=== PATIENT | female | born 1950 | race Caucasian/White ===

== ENCOUNTER → 2017-04-11 | Outpatient (CLI) | payer MEDICARE ==
--- NOTE | 2017-04-11 14:35 | MM ---
Reason for exam: additional evaluation requested from abnormal screening. Last mammogram was performed 1 month ago. History: Patient is postmenopausal. Physical Findings: Nurse did not find any significant physical abnormalities on exam. MG 3D Work Up W/Cad LT Spot compression CC, spot compression MLO, and ML view(s) were taken of the left breast. Prior study comparison: March 25, 2017, bilateral MG 3d screening mammo w/cad. June 27, 2014, bilateral MG screening mammo w CAD. No distinct lesion persists. These results were verbally communicated with the patient and result sheet given to the patient on 04/11/17. ASSESSMENT: Negative, BI-RAD 1 RECOMMENDATION: Return to routine screening mammogram schedule for both breasts.
== END | disposition home or self-care (01) ==
LOC: RADMAMWWP 13:37
PROVIDERS: ATTEND Family Medicine
DX: R92.8 Other abnormal and inconclusive findings on diagnostic imaging of breast (principal)
CPT/HCPCS: G0206; G0279

== ENCOUNTER → 2017-04-29 | Outpatient (CLI) | payer MEDICARE | END | disposition home or self-care (01) | LOC: LABPAT 10:27 | PROVIDERS: ATTEND Orthopaedic Surgery | DX: Z01.812 Encounter for preprocedural laboratory examination (principal) | CPT/HCPCS: 87070 ==

== ENCOUNTER 2017-05-05 10:25 | Inpatient (IN) | payer MEDICARE ==
[2017-04-28 10:30] VITALS: BMI 32.4
--- NOTE | 2017-05-04 13:26 | HP ---
HISTORY AND PHYSICAL Surgery is 05/05/2017. Keli Retana is a 66-year-old patient seen with symptomatic left knee osteoarthritis. We discussed treatment options. She elected to proceed with left total knee arthroplasty. Consent regarding procedure obtained. Medical clearance was provided by [facility]. PAST MEDICAL HISTORY: Hyperlipidemia, rrr-mnmnxlp-feshshrun diabetes, COPD. PAST SURGICAL HISTORY: Appendectomy, hysterectomy, left knee arthroscopy, lap band surgery. DAILY MEDICATIONS: Atorvastatin, metformin, Breo inhaler. ALLERGIES: None reported. SOCIAL HISTORY: Patient denies tobacco use. PHYSICAL EXAMINATION: Evaluation of the left knee: Range of motion is -7 to 80 degrees. Tenderness along the medial and lateral joint lines. Mild intra-articular effusion. Crepitus medial patellofemoral joints with range of motion. Pain with patellofemoral compression. Ligaments are stable. Hip rotation is without pain. Distal neurovascular exam intact. RADIOGRAPHS: Left knee radiographs reveal severe medial and moderate patellofemoral compartment osteoarthritis. IMPRESSION: 1. Left knee osteoarthritis. 2. Noe-gnuyztl-amlzvderi diabetes. 3. Hypertension. 4. Chronic obstructive pulmonary disease. PLAN: Left total knee arthroplasty. MMODL / IJN: [id number] /
[~2017-05-05 10:25] MED LIST: ACETAMINOPHEN TAB 500 MG TAB PO ONE; DEXAMETHASONE SOD PHOSPHATE 10 MG/ML 1 ML VIAL IV ONE; LACTATED RINGERS 1,000 ML IV SCH; MELOXICAM 7.5 MG TAB PO ONE; MIDAZOLAM 2 MG/2 ML VIAL IV PRN; MORPHINE SULFATE 4 MG/ML SYRINGE IV PRN; ONDANSETRON 4 MG/2 ML VIAL IVP ONE; TRANEXAMIC ACID 1,000 MG in SODIUM CHLORIDE 0.9% 50 ML IVPB ONE; ceFAZolin IN SWFI 2 GM/20 ML SYRINGE IVP ONE
[2017-05-05] MEDS ORDERED: LIDOCAINE 1% 20 ML VIAL (10MG/ML) FOR IV START INTRADERMA ONE (12:17)
[2017-05-05 12:35] LABS: Glucose,Whole Blood 80 mg/dL (75-99)
[2017-05-05] MEDS ORDERED: ROPIVACAINE 246.25 MG, EPINEPHrine 0.5 MG, KETOROLAC 30 MG, cloNIDine HCL/PF 80 MCG, WA... MISCELLANE ONE ×5 (12:43)
[2017-05-05] MEDS ORDERED: fentaNYL (PF) 50 MCG/ML 2 ML AMP IV ONE (12:52)
[2017-05-05] MEDS ORDERED: ROPIVACAINE 1,100 MG, SODIUM CHLORIDE 0.9% 330 ML MISCELLANE PRN ×2 (13:14)
--- NOTE | 2017-05-05 13:16 | P.ONQ ---
Anesthesiology Proc Note - PNB - Peripheral Nerve Block Performed Left Adductor Canal Infusion Time Out Performed: Yes Procedure Start Time: 12:55 Indication: Acute Post-Operative Pain, Analgesia Specifically requested for management of pain by DrDel: Patrick Ta Sedation Type: Sedate with meaningful contact maintained Preparation: Sterile Prep Position: Supine Catheter Depth at Skin (cm): 8 Catheter: Indwelling Needle Types: Other (see comment) (Pajunk) Needle Size: 100mm (4") Needle Gauge: 18 Technique: Ultrasound Injectate: 0.5% Ropivacaine (see comment for volume) (20cc) Blood Aspirated: No Pain Paresthesia on Injection Noted: No Resistance on Injection: Normal Events: Uneventful and Well Tolerated
[2017-05-05] MEDS ORDERED: SODIUM CHLORIDE 0.9% 100 ML BAG ONE (13:43)
[2017-05-05] MEDS ORDERED: fentaNYL (PF) 50 MCG/ML 2 ML AMP ONE (13:43)
[2017-05-05] MEDS ORDERED: LIDOCAINE 1% INJ 10MG/ML (20 ML MDV) ONE (13:43)
[2017-05-05] MEDS ORDERED: PROPOFOL 10 MG/ML 20 ML VIAL IV ONE (13:43)
[2017-05-05] MEDS ORDERED: MIDAZOLAM 2 MG/2 ML VIAL ONE (13:43)
[2017-05-05] MEDS ORDERED: TRANEXAMIC ACID 1,000 MG/10 ML VIAL ONE (13:43)
[2017-05-05] MEDS ORDERED: ceFAZolin 1,000 MG in SODIUM CHLORIDE 0.9% 1,000 ML IRRIGATION ONE ×2 (14:15→15:01)
[2017-05-05] MEDS ORDERED: LACTATED RINGERS 1,000 ML IV ONE (15:23)
--- NOTE | 2017-05-05 15:36 | P.OP ---
Date of Procedure: 05/05/17 Preoperative Diagnosis: Left knee osteoarthritis Postoperative Diagnosis: Left knee osteoarthritis Procedure(s) Performed: Left total knee arthroplasty Implants: 1. Quin persona size 8 left cruciate-retaining narrow cemented femur 2. Quin persona size E left cemented tibia 3. Quin persona 12 mm medial congruent polyethylene tibial insert 4. Quin persona 35 mm all polyethylene cemented patella Anesthesia: regional (Adductor canal catheter), local, spinal Surgeon: Patrick Ta Immunology Specialist #1: Sylvester Gregory Estimated Blood Loss (ml): 50 Pathology: other (Bone) Condition: stable Disposition: PACU Indications for Procedure: 66-year-old patient seen with symptomatic left knee osteoarthritis. After treatment options were discussed, she elected to proceed with total knee arthroplasty. Operative Findings: See description of procedure Description of Procedure: Patient was taken to the operative suite after having had an adductor canal catheter placed by the department of anesthesia. Patient underwent a spinal anesthetic by the department of anesthesia. Patient was given preoperative IV intake antibiotics and TXA. A well-padded tourniquet was placed about the left lower extremity. The lower extremity was then prepped and draped in the normal sterile orthopedic fashion. The extremity was elevated, a tourniquet was insufflated to 350. A standard anterior incision was made sharply through skin. Dissection was taken down through the subcutaneous soft tissues down to the extensor mechanism. A medial arthrotomy was performed, patella was everted and knee was flexed. There was advanced osteoarthritis noted. A proximal tibial cutting guide was positioned. Proximal tibial cut was made. A distal intramedullary femoral cutting guide was positioned, distal femoral cut made. We placed the appropriate sizing guide and selected the appropriate size. A distal 4-in-1 femoral cutting block was positioned, distal femoral cuts were made. We now placed a trial femoral component into position, along with an appropriate size tibial tray and insert. We now took the knee through range of motion and had full extension good flexion and good overall soft tissue balance noted. The patella was everted and a flush cut made with patellar quad tendon. We templated the patella, appropriate drill holes were made. An appropriate trial patella was positioned, knee was taken through full range of motion with the patella tracking very nicely. The trial patella was removed. Drill holes were made through the femoral component. All trial components were removed after marking off the appropriate rotation of the tibia. Retractors were now positioned along the proximal tibia. An appropriate keel punch was made with the appropriate size tibial guide. At this point appropriate size implants were chosen and opened. The joint was irrigated copiously with pulse lavage mechanical irrigation. The posterior capsule was infiltrated with local analgesic. We mixed antibiotic methylmethacrylate. Once the methyl methacrylate was ready, the tibial component was cemented into place removing any excess methylmethacrylate. The femoral component was cemented into place removing the removing any excess methylmethacrylate. We then inserted the appropriate size polyethylene tibial insert. We made sure that it was locked into position. We took the knee into full extension, and then back in a flexion making sure we had removed any excess methylmethacrylate. The patellar component was then cemented down and secured with clamp. Excess methylmethacrylate removed. We kept the knee in full extension, patellar clamp in position until methylmethacrylate had hardened. Once it had hardened the patellar clamp was removed. The knee was taken through full range of motion. The patella tracked nicely. There was good soft tissue balancing. The tourniquet was now released. Additional hemostasis was achieved via electrocautery. A second gram of TXA was given. The wound was irrigated with pulse lavage mechanical irrigation. The superficial tissues were infiltrated local analgesic. The extensor mechanism was repaired with Vicryl. We checked the repair with range of motion and it was stable. The subcutaneous soft tissues were repaired with Vicryl in layers. The skin was approximated with pernio/Dermabond. Sterile dressings were applied followed by loose web roll and Golden bandage. The patient was transferred to a bed, and taken to recovery in stable and satisfactory condition. Omar TAPIA assisted with the procedure.
[2017-05-05] MEDS ORDERED: HYDROmorphone 0.5 MG/0.5 ML SYRINGE IVP PRN ×3 (15:37)
[2017-05-05] MEDS ORDERED: ONDANSETRON 4 MG/2 ML VIAL IVP PRN (15:37)
[2017-05-05] MEDS ORDERED: hydrOXYzine PAMOATE 25 MG CAP PO PRN (15:37)
[2017-05-05] MEDS ORDERED: NALOXONE 0.4 MG/ML 1 ML VIAL IV PRN (15:37)
[2017-05-05] MEDS ORDERED: HYDROcodone/APAP 7.5-325MG 1 EACH TAB PO PRN ×2 (15:37)
--- NOTE | 2017-05-05 16:34 | XR ---
EXAMINATION TYPE: XR knee limited LT DATE OF EXAM: 05/05/2017 COMPARISON: NONE HISTORY: 66-year-old female evaluation for postoperative abnormality and alignment TECHNIQUE: Portable AP and crosstable lateral views FINDINGS: Images show placement of left total knee arthroplasty. Both distal femoral and proximal tibial compon ents of the prosthesis appear well seated without periprosthetic fracture. Alignment grossly anatomic . Soft tissue air and soft tissue swelling as well as intra-articular air related to recent operation . Medial soft tissue density may represent phleboliths. IMPRESSION: Uncomplicated postoperative appearance left total knee arthroplasty.
[2017-05-05 17:04] LABS: Glucose,Whole Blood 91 mg/dL (75-99)
[2017-05-05] MEDS: traMADol 50 MG TAB PO SCH ×3 (17:18→21:36)
[2017-05-05] MEDS ORDERED: VIT A,C & E-LUTEIN-MINERALS 1 EACH TAB PO SCH (21:00)
[2017-05-05] MEDS ORDERED: LATANOPROST 0.005% OPHTH DROPS 2.5 ML BTL RIGHT EYE SCH (21:00)
[2017-05-05] MEDS ORDERED: SENNOSIDES-DOCUSATE SODIUM 1 EACH TAB PO SCH (21:00)
[2017-05-05] MEDS ORDERED: ATORVASTATIN 40 MG TAB PO SCH (21:00)
[2017-05-05 21:02] LABS: Glucose,Whole Blood 130 mg/dL (75-99)
[2017-05-05] MEDS: INSULIN ASPART 100 UNIT/ML 1 ML 10 ML VIAL SQ SCH (21:05)
[2017-05-05] MEDS: LACTATED RINGERS 1,000 ML IV SCH (21:31)
[2017-05-05] MEDS: ceFAZolin IN SWFI 2 GM/20 ML SYRINGE IVP SCH (21:34)
[2017-05-06] MEDS: ceFAZolin IN SWFI 2 GM/20 ML SYRINGE IVP SCH (06:24)
--- NOTE | 2017-05-06 06:24 | P.PN ---
Progress Note - Text Progress Note Date: 05/06/17 . Postoperative day # 1 status post total knee arthroplasty, under spinal anesthesia, and adductor canal catheter placed for postoperative analgesia, currently at ropivacaine 0.2% 8 mL per hour and continuous infusion, catheter site local. There is no erythema, and there is no tenderness, visual analogue scale is 4/10, patient using oral pain medication for breakthrough pain. Assessment and plan= Acute postoperative pain, adductor canal catheter for pain control, pain is well controlled we'll continue the same management.
[2017-05-06] MEDS: LACTATED RINGERS 1,000 ML IV SCH ×2 (06:25→11:20)
[2017-05-06 07:08] LABS: Glucose,Whole Blood 103 mg/dL (75-99)
[2017-05-06 07:28] LABS: Basophils % (A) 0 %; Eosinophils % (A) 0 %; HCT 32.7 % (34.0-46.0); HGB 10.6 gm/dL (11.4-16.0); Lymphocytes # (A) 1.6 k/uL (1.0-4.8); Lymphocytes % (A) 15 %; MCH 29.9 pg (25.0-35.0); MCHC 32.5 g/dL (31.0-37.0); MCV 91.8 fL (80.0-100.0); Mean Platelet Volume 7.6; Monocytes # (A) 0.6 k/uL (0-1.0); Monocytes % (A) 6 %; Neutrophils # (A) 8.4 k/uL (1.3-7.7); Neutrophils % (A) 78 %; Platelet Count 229 k/uL (150-450); RBC 3.56 m/uL (3.80-5.40); RDW 12.6 % (11.5-15.5); WBC 10.8 k/uL (3.8-10.6)
[2017-05-06] MEDS: INSULIN ASPART 100 UNIT/ML 1 ML 10 ML VIAL SQ SCH ×2 (07:40→12:14)
[2017-05-06 07:43] VITALS: BP 120/62; PULSE 69; RESP 12; TEMP 98.2
[2017-05-06] MEDS: metFORMIN 500 MG TAB PO SCH ×2 (07:49→09:45)
[2017-05-06] MEDS: traMADol 50 MG TAB PO SCH ×2 (07:49→12:43)
[2017-05-06] MEDS ORDERED: MELOXICAM 7.5 MG TAB PO SCH (09:00)
[2017-05-06] MEDS ORDERED: ENOXAPARIN 30 MG/0.3 ML SYRINGE SQ SCH (09:00)
[2017-05-06] MEDS ORDERED: FAMOTIDINE 20 MG TAB PO SCH (09:00)
--- NOTE | 2017-05-06 10:06 | P.CONS ---
History of Present Illness - Reason for Consult Consult date: 05/06/17 Medical management Requesting physician: Patrick Ta - Chief Complaint Status post left total knee arthroplasty - History of Present Illness This is a 66-year-old female, patient of [facility]. She has a known past medical history of diabetes mellitus, hyperlipidemia, COPD and osteoarthritis. Patient also has had anemia since childhood. She had been on iron supplements in the past. But had gone off of them because of the constipation. Hemoglobin 10.6. Last colonoscopy was 5 years ago and was normal at that time per patient. Patient moves the hospital for osteoarthritis of the left knee and underwent a left total knee arthroplasty. We have been consulted for medical management. Patient has been up and ambulating as of yesterday. She's sitting at bedside chair. Pain is tolerable. They're anticipating with discharge later this afternoon. She denies any chest pain or shortness of breath. Denies any nausea or vomiting. She is passing gas. Denies any burning or difficulty with urinating. Patient denies any blood in the stools. Review of Systems Please refer to HPI otherwise unremarkable Past Medical History Past Medical History: COPD, Diabetes Mellitus, Eye Disorder, Hyperlipidemia, Osteoarthritis (OA) Additional Past Medical History / Comment(s): 03/27/15 Pt admitted to floor s/ p total R knee arthroplasty. Other HX: no BP problems since wt loss, R eye glaucoma, NIDDM. Anemia since childhood, likely iron deficiency anemia History of Any Multi-Drug Resistant Organisms: None Reported Past Surgical History: Appendectomy, Bariatric Surgery, Hysterectomy, Joint Replacement, Orthopedic Surgery Additional Past Surgical History / Comment(s): 03/27/15 Total R knee arthroplasty. Other SX HX: lap band, surgery for plyoric stenosis, varicose veins both legs, arthrscopy left knee, plastic surgery on scalp, rt shoulder arthroscopy, tlk Past Anesthesia/Blood Transfusion Reactions: No Reported Reaction Additional Past Anesthesia/Blood Transfusion Reaction / Comm: Pt has never received blood. Past Psychological History: No Psychological Hx Reported Additional Psychological History / Comment(s): Pt resides with her spouse. She is independent. She uses no assistive device. She drives a car. Smoking Status: Never smoker Past Alcohol Use History: None Reported Past Drug Use History: None Reported - Past Family History Brother(s) Family Medical History: Cancer Mother Family Medical History: CVA/TIA Additional Family Medical History / Comment(s): Mother of a CVA at age 70 yrs. Father Family Medical History: Unable to Obtain Additional Family Medical History / Comment(s): Father in a plane crash when pt was 10 yrs old. Medications and Allergies Home Medications Medication Instructions Recorded Confirmed Type Atorvastatin [Lipitor] 40 mg PO HS 03/23/15 05/05/17 History Vit C/E/Zn/Coppr/Lutein/Zeaxan 1 cap PO HS 03/23/15 05/05/17 History [Preservision Areds 2 Softgel] metFORMIN HCL [Glucophage] 500 mg PO DAILY 03/23/15 05/05/17 History Ibuprofen/Diphenhydramine HCl 2 cap PO HS 04/28/17 05/05/17 History [Advil Pm Liqui-Gels] Latanoprost Ophth [Xalatan 0.005%] 1 drops RIGHT EYE HS 04/28/17 05/05/17 History Allergies Allergy/AdvReac Type Severity Reaction Status Date / Time No Known Allergies Allergy Verified 05/05/17 16:21 Physical Exam Vitals: Vital Signs Temp Pulse Resp BP Pulse Ox 05/06/17 07:00 98.2 F 69 12 120/62 96 05/06/17 04:34 185/90 05/06/17 02:37 97.1 F L 71 16 119/61 96 05/05/17 18:45 104 H 177/103 05/05/17 18:30 86 153/98 05/05/17 18:15 89 164/90 05/05/17 18:00 79 145/83 05/05/17 17:45 72 139/68 05/05/17 17:30 77 147/81 05/05/17 17:15 79 137/82 05/05/17 17:00 98.0 F 76 16 134/70 99 05/05/17 16:40 75 16 123/68 98 05/05/17 16:25 81 16 123/66 98 05/05/17 16:05 79 16 126/66 98 05/05/17 15:50 97.2 F L 82 16 124/63 95 05/05/17 13:10 82 16 146/80 98 05/05/17 12:16 98.5 F 89 18 177/85 97 Intake and Output 05/05/17 05/06/17 05/06/17 22:59 06:59 14:59 Intake Total 351 240 Output Total 50 Balance 301 240 Intake: IV 351 Oral 240 Output: Estimated Blood Loss 50 Other: Voiding Method Toilet # Voids 2 2 Weight 88.451 kg Head normocephalic Neck supple Lungs clear to auscultation bilaterally no wheezing or crackles Heart regular rate and rhythm S1-S2, no rub or gallop Abdomen is soft nontender nondistended positive bowel sounds no hepatosplenomegaly Extremities no edema. Left knee dressing clean dry and intact. No calf tenderness Neuro alert and orientated to 3 Results CBC & Chem 7: 05/06/17 06:53 Labs: Abnormal Lab Results - Last 24 Hours (Table) 05/05/17 05/06/17 05/06/17 Range/Units 21:00 06:53 07:02 WBC 10.8 H (3.8-10.6) k/uL RBC 3.56 L (3.80-5.40) m/uL Hgb 10.6 L (11.4-16.0) gm/dL Hct 32.7 L (34.0-46.0) % Neutrophils # 8.4 H (1.3-7.7) k/uL POC Glucose (mg/dL) 130 H 103 H (75-99) mg/dL Assessment and Plan Assessment: 1. Left knee osteoarthritis: Status post left total knee arthroplasty. Estimated blood loss 50ml. Pain controlled. On Lovenox for DVT prophylaxis 2. Anemia: Possibly an iron deficiency anemia versus expected acute blood loss anemia after surgery. Patient has been on iron supplements in the past. Also reports anemia since childhood. No history of blood transfusions required. Hemoglobin 10.6. Last colonoscopy 5 years ago. No active signs or symptoms of bleeding. Check iron studies. Preop labs shows a hemoglobin of 12.2 from 04/17. We'll start patient on iron supplements. 3. Diabetes mellitus type 2: Resume metformin. Add sliding scale coverage 4. Hyperlipidemia continue statin 5. COPD stable DVT prophylaxis Lovenox and GI prophylaxis Pepcid Thank you for this consultation and asking us to participate in this patient's care. We will continue to follow along with you. If patient discharge today recommend checking CBC in 1 week. And have her follow-up with her PCP in 1 week Time with Patient: Greater than 30 (Greater than 50% of the total time spent in counseling and coordination of care.I performed an examination of the patient and discussed their management with the physician Kitchenhand. I have reviewed the Physician Kitchenhand's notes and agree with the documented findings and plan of care)
[2017-05-06 11:24] LABS: Glucose,Whole Blood 106 mg/dL (75-99)
--- NOTE | 2017-05-06 12:56 | P.PN ---
Subjective Progress Note Date: 05/06/17 Principal diagnosis: Status post left total knee arthroplasty Patient seen today resting in her hospital bed, she appears comfortable. She is ambulating well with therapy. She is urinating on her own. She denies any headaches, lightheadedness, chest pain or shortness of breath. Objective - Vital Signs Vital signs: Vital Signs Temp 98.2 F 05/06/17 07:00 Pulse 69 05/06/17 07:00 Resp 12 05/06/17 07:00 BP 120/62 05/06/17 07:00 Pulse Ox 96 05/06/17 07:00 Intake & Output 05/05/17 05/06/17 05/06/17 18:59 06:59 18:59 Intake Total 1352 240 Output Total 50 Balance 1302 240 Weight 88.451 kg Intake: IV 1352 Oral 240 Output: Estimated Blood Loss 50 Other: Voiding Method Toilet # Voids 2 - Exam Left lower extremity: Incision is clean, dry, and intact. The prineo tape is in good condition. There is minimal soft tissue swelling and ecchymosis surrounding the medial and lateral aspects of the incision. Calf is soft, no tenderness with palpation. Plantar flexion, dorsiflexion, EHL, FHL are intact. Sensory exam to light touch throughout the extremity is intact, dorsal pedis pulses 2+. - Labs CBC & Chem 7: 05/06/17 06:53 Labs: Abnormal Lab Results - Last 24 Hours (Table) 05/05/17 05/06/17 05/06/17 Range/Units 21:00 06:53 07:02 WBC 10.8 H (3.8-10.6) k/uL RBC 3.56 L (3.80-5.40) m/uL Hgb 10.6 L (11.4-16.0) gm/dL Hct 32.7 L (34.0-46.0) % Neutrophils # 8.4 H (1.3-7.7) k/uL POC Glucose (mg/dL) 130 H 103 H (75-99) mg/dL 05/06/17 Range/Units 11:12 WBC (3.8-10.6) k/uL RBC (3.80-5.40) m/uL Hgb (11.4-16.0) gm/dL Hct (34.0-46.0) % Neutrophils # (1.3-7.7) k/uL POC Glucose (mg/dL) 106 H (75-99) mg/dL Assessment and Plan Plan: Assessment: 1. Postop day 1 status post left total knee arthroplasty Plan: 1. Pain control, continue use of oral medication 2. GI and DVT prophylaxis, we'll discharge home on aspirin 325 mg twice a day 3. Wound care instructions discussed 4. Nursing and is a therapy after discharge 5. Medical recommendations 6. Discharge planning: Patient will likely will be discharged home today
--- NOTE | 2017-05-06 12:58 | P.DS ---
Providers Date of admission: 05/05/17 12:01 Expected date of discharge: 05/06/17 Attending physician: Patrick Ta Consults: 05/05/17 15:37 Consult Physician Routine Consulting Provider: Clarissa Purcell Consult Reason/Comments: Medical management Do you want consulting provider notified?: Yes 05/05/17 16:04 Consult Physician Routine Consulting Provider: Go Guzman Consult Reason/Comments: medical management Do you want consulting provider notified?: Yes Primary care physician: Clarissa Purcell Hospital Course: Date of admission: 05/05/2017 Date of discharge: 05/06/2017 Admission diagnosis: Status post left total knee arthroplasty Discharge diagnosis: Same Attending physician: Dr. Ta Surgical procedures: left total knee arthroplasty Brief history: Patient is a a 66-year-old female with a history of of progressive primary left knee osteoarthritis. At this point patient has failed conservative treatment measures and has opted to proceed with a elective left total knee arthroplasty. Hospital course: Details of patient's surgery can be found in operative report. Patient tolerated the procedure well and was subsequently transported to orthopedic floor. Patient's orthopeidc and medical care was provided daily. Patient had daily laboratory tests performed for evaluation of overall blood counts. Patient had daily physical therapy to include strengthening range of motion as well as education with walker ambulation. Patient had daily CPM usage as part of their physical therapy program. Patient was treated with Lovenoxfor their postoperative DVT prophylaxis during their inpatient stay. Patient was noted to have a relatively uneventful postoperative course. Patient reported satisfactory pain control with oral pain medications by postoperative day 0. Patient showed satisfactory progress with physical therapy. Patient moved steadily through the program and had no difficulty meeting the goals by postoperative day 1. Given patient's otherwise satisfactory course and having met physical therapy goals, plan is to discharge patient home on postoperative day 1. Discharge condition/disposition: Patient will be discharged home in stable condition. Discharge medications: Instructions are given on resumption of patient's normal daily medications per primary care recommendation, in addition patient will be prescribed Kincaid 7.5 mg/325 mg, Colace 100 mg, aspirin 325 mg. Discharge instructions: 1. Wound care and infection precautions, keep incision dry and covered while showering, no lotions, creams, moisturizers. No soaking, tubs, pools, hottubs. Do not scrub over the incision. 2. Weight-bear as tolerated with walker / cane until follow-up. 3. Ice and elevate when necessary. Do not exceed 20 minutes per hour with ice pack. 4. Utilize compression sleeve until seen at first follow up appointment. 5. Visiting nursing care. 6. Home physical therapy including home CPM]. 7. Pain meds and anticoagulants per prescription. 8. Pain medication has potential to cause constipation. Increase oral fluid and fiber intake. Contact primary care provider if you have not had a bowel movement within 48 hours after discharge 9. No anti-inflammatory medication until discussed at first post operative visit, this including Motrin, Aleve, Mobic, Diclofenac. 10. Follow up in office at 2 weeks postop with Omar Gregory PA-C 11. Follow up with your primary care doctor 7-10 days after discharge. 12. Contact [facility] with any questions, . Procedures: Left total knee arthroplasty Patient Condition at Discharge: Good Plan - Discharge Summary Discharge Rx Participant: Yes New Discharge Prescriptions: New Aspirin 325 mg PO BID #60 tab Docusate [Colace] 100 mg PO DAILY #30 capsule HYDROcodone/APAP 7.5-325MG [Kincaid 7.5] 1 - 2 each PO Q6HR PRN #60 tab PRN Reason: Pain Ferrous Sulfate [Iron (65 MG Elemental)] 325 mg PO BID #60 tab Continue metFORMIN HCL [Glucophage] 500 mg PO DAILY Atorvastatin [Lipitor] 40 mg PO HS Vit C/E/Zn/Coppr/Lutein/Zeaxan [Preservision Areds 2 Softgel] 1 cap PO HS Latanoprost Ophth [Xalatan 0.005%] 1 drops RIGHT EYE HS Discontinued Ibuprofen/Diphenhydramine HCl [Advil Pm Liqui-Gels] 2 cap PO HS Discharge Medication List Atorvastatin [Lipitor] 40 mg PO HS 03/23/15 [History] Vit C/E/Zn/Coppr/Lutein/Zeaxan [Preservision Areds 2 Softgel] 1 cap PO HS [History] metFORMIN HCL [Glucophage] 500 mg PO DAILY 03/23/15 [History] Latanoprost Ophth [Xalatan 0.005%] 1 drops RIGHT EYE HS 04/28/17 [History] Aspirin 325 mg PO BID #60 tab 01/23/18 [Rx] Docusate [Colace] 100 mg PO DAILY #30 capsule 05/06/17 [Rx] Ferrous Sulfate [Iron (65 MG Elemental)] 325 mg PO BID #60 tab 05/06/17 [Rx] HYDROcodone/APAP 7.5-325MG [Kincaid 7.5] 1 - 2 each PO Q6HR PRN #60 tab 05/06/17 [ Rx] Follow up Appointment(s)/Referral(s): [facility], [NON-STAFF] - Sylvester Gregory PAC [PHYSICIAN [employer]OZEN PIE MAKER] - 05/21/17 3:10 pm Clarissa Purcell DO [Primary Care Provider] - 05/15/17 9:00 am (Appointment set in [place] Office) Patient Instructions/Handouts: Knee Replacement (DC) Activity/Diet/Wound Care/Special Instructions: Orthopedic Discharge Instructions: 1. Wound care and infection precautions, keep incision dry and covered while showering, no lotions, creams, moisturizers. No soaking, pools, hot tubs. Do not scrub over incision. 2. Weight-bear as tolerated with walker / cane until follow-up. 3. Ice and elevate when necessary. Do not exceed 20 minutes per hour with ice pack. 4. Utilize compression sleeve until seen at first follow up appointment. 5. Visiting nursing care. 6. Home physical therapy including home CPM. 7. Pain meds and anticoagulants per prescription. 8. Pain medication has potential to cause constipation. Increase oral fluid and fiber intake. Contact primary care provider if you have not had a bowel movement within 48 hours after discharge. 9. No anti-inflammatory medication until discussed at first post operative visit, this including Motrin, Aleve, Mobic, Diclofenac. 10. Follow up in office at 2 weeks postop with Omar Gregory PA-C 11. Follow up with your primary care doctor 7-10 days after discharge. 12. Contact [facility] with any questions, . check CBC in 1 week Diet: diabetic Discharge Disposition: HOME WITH HOME HEALTH SERVICES
[2017-05-06 16:11] LABS: Iron Saturation 15.41 (12.00-45.00)
[2017-05-06 17:44] LABS: Hemoglobin A1C 5.7 % (4.0-6.0)
[2017-05-06] MEDS ORDERED: FERROUS SULFATE 325 MG TAB PO SCH (21:00)
== END 2017-05-06 17:00 | disposition home health service (06) | DRG 470 ==
LOC: 2ORMAIN 12:01 → 3SUR 15:57
PROVIDERS: ADMIT Orthopaedic Surgery; ATTEND Orthopaedic Surgery
PROC: 0SRD069 Replacement of Left Knee Joint with Oxidized Zirconium on Polyethylene Synthetic Substitute, Cemented, Open Approach (ICD-10-PCS; principal; 2017-05-05 13:20)
DX: M17.12 Unilateral primary osteoarthritis, left knee (principal); J44.9 Chronic obstructive pulmonary disease, unspecified; E11.9 Type 2 diabetes mellitus without complications; E78.5 Hyperlipidemia, unspecified; D50.9 Iron deficiency anemia, unspecified; G89.18 Other acute postprocedural pain; I10 Essential (primary) hypertension; Z96.651 Presence of right artificial knee joint; Z79.84 Long term (current) use of oral hypoglycemic drugs; Z90.89 Acquired absence of other organs; Z90.710 Acquired absence of both cervix and uterus; Z98.84 Bariatric surgery status; Z79.899 Other long term (current) drug therapy; Z86.69 Personal history of other diseases of the nervous system and sense organs; Z82.3 Family history of stroke; Z79.1 Long term (current) use of non-steroidal anti-inflammatories (NSAID)
CPT/HCPCS: 82728; 83036; 83540; 83550; 85025; 88300

== ENCOUNTER → 2019-02-26 | Outpatient (CLI) | payer MEDICARE ==
--- NOTE | 2019-02-26 13:49 | MM ---
Reason for exam: screening (asymptomatic). Last mammogram was performed 1 year and 11 months ago. History: Patient is postmenopausal. Physical Findings: A clinical breast exam by your physician is recommended on an annual basis and results should be correlated with mammographic findings. MG 3D Screening Mammo W/Cad Bilateral CC and MLO view(s) were taken. Prior study comparison: April 11, 2017, left breast MG 3d work up w/cad LT. March 25, 2017, bilateral MG 3d screening mammo w/cad. There are scattered fibroglandular densities. No suspicious abnormality. No significant changes when compared with prior studies. ASSESSMENT: Negative, BI-RAD 1 RECOMMENDATION: Routine screening mammogram of both breasts in 1 year.
== END | disposition home or self-care (01) ==
LOC: RADMAMWWP 09:35
PROVIDERS: ATTEND Family Medicine
DX: Z12.31 Encounter for screening mammogram for malignant neoplasm of breast (principal)
CPT/HCPCS: 77063; 77067

== ENCOUNTER → 2020-05-15 | Outpatient (CLI) | payer MEDICARE ==
--- NOTE | 2020-05-16 09:49 | MM ---
Reason for exam: screening (asymptomatic). Last mammogram was performed 1 year and 3 months ago. History: Patient is postmenopausal. Took hormonal contraceptives for 20 years. Physical Findings: A clinical breast exam by your physician is recommended on an annual basis and results should be correlated with mammographic findings. MG 3D Screening Mammo W/Cad Bilateral CC and MLO view(s) were taken. Prior study comparison: February 26, 2019, bilateral MG 3d screening mammo w/cad. April 11, 2017, left breast MG 3d work up w/cad LT. The breast tissue is heterogeneously dense. This may lower the sensitivity of mammography. There is no discrete abnormality. No significant changes when compared with prior studies. ASSESSMENT: Negative, BI-RAD 1 RECOMMENDATION: Routine screening mammogram of both breasts in 1 year.
== END | disposition home or self-care (01) ==
LOC: RADMAMWWP 10:52
PROVIDERS: ATTEND Family Medicine
DX: Z12.31 Encounter for screening mammogram for malignant neoplasm of breast (principal)
CPT/HCPCS: 77063; 77067

== ENCOUNTER → 2021-09-27 | Outpatient (CLI) | payer MEDICARE ==
--- NOTE | 2021-09-29 13:04 | MM ---
Reason for Exam: Screening (asymptomatic). Last mammogram was performed 1 year(s) and 4 month(s) ago. Patient History: Menarche at age 12. First Full-Term at age 24. Left ovary removed at age 45. Right ovary removed at age 45. Hysterectomy at age 45. Postmenopausal. Patient used Hormonal Contraceptives for 20 years. Risk Values: Marcelle 5 year model risk: 1.9%. NCI Lifetime model risk: 5.4%. Prior Study Comparison: 04/11/2017 Left Diagnostic Mammogram, [facility]. 02/26/2019 Bilateral Screening Mammogram, [facility]. 05/15/2020 Bilateral Screening Mammogram, [facility]. Tissue Density: There are scattered fibroglandular densities. Findings: Analyzed By CAD. There is no suspicious group of microcalcifications or new suspicious mass in either breast. Overall Assessment: Negative, BI-RAD 1 Management: Screening Mammogram of both breasts in 1 year. 1. Patient should continue monthly self breast exams. 2. A clinical breast exam by your physician is recommended on an annual basis and results should be correlated with mammographic findings. A negative mammogram should not preclude additional follow-up of suspicious palpable abnormalities. Electronically signed and approved by: Liseth Ivory M.D. Radiologist
== END | disposition home or self-care (01) ==
LOC: RADMAMWWP 15:11
PROVIDERS: ATTEND Family Medicine
DX: Z12.31 Encounter for screening mammogram for malignant neoplasm of breast (principal); Z78.0 Asymptomatic menopausal state
CPT/HCPCS: 77063; 77067

== ENCOUNTER 2022-02-10 12:56 | Emergency (ER) | payer MEDICARE ==
[2022-02-10] MEDS ORDERED: KETOROLAC 15 MG/ML 1 ML VIAL IVP STA (13:09)
[2022-02-10] MEDS ORDERED: HYDROmorphone 1 MG/ML 1 ML SYRINGE IVP STA (13:09)
--- NOTE | 2022-02-10 13:09 | ED ---
General Adult HPI - General Chief complaint: Extremity Problem,Nontraumatic Stated complaint: rt hip pain Time Seen by Provider: 02/10/22 13:01 Source: patient, RN notes reviewed Mode of arrival: ambulatory Limitations: no limitations - History of Present Illness Initial comments: Patient is a pleasant 71-year-old female presenting to the emergency department with concerns for right hip pain. Patient was standing prior to arrival and bending over. Patient felt a pop and has had significant right hip discomfort since that time. Discomfort is mostly right posterior. Patient does have a history of sciatica however symptoms have not been this severe in the past. Patient did not attempt to walk following this. No weakness or loss of sensation. No incontinence or retention of bowel or bladder. No trauma to the area. - Related Data Home Medications Medication Instructions Recorded Confirmed Atorvastatin [Lipitor] 40 mg PO HS 03/23/15 05/05/17 Vit C/E/Zn/Coppr/Lutein/Zeaxan 1 cap PO HS 03/23/15 05/05/17 [Preservision Areds 2 Softgel] metFORMIN HCL [Glucophage] 500 mg PO DAILY 03/23/15 05/05/17 Latanoprost Ophth [Xalatan 0.005%] 1 drops RIGHT EYE HS 04/28/17 05/05/17 Previous Rx's Medication Instructions Recorded Aspirin 325 mg PO BID #60 tab 05/06/17 Docusate [Colace] 100 mg PO DAILY #30 capsule 05/06/17 Ferrous Sulfate [Iron (65 MG 325 mg PO BID #60 tab 05/06/17 Elemental)] HYDROcodone/APAP 7.5-325MG [Clementon 1 - 2 each PO Q6HR PRN #60 tab 05/06/17 7.5] Cyclobenzaprine [Flexeril] 10 mg PO TID PRN #12 tablet 02/10/22 predniSONE [Deltasone] 20 mg PO BID #10 tab 02/10/22 Allergies Allergy/AdvReac Type Severity Reaction Status Date / Time No Known Allergies Allergy Verified 02/10/22 13:03 Review of Systems ROS Statement: Those systems with pertinent positive or pertinent negative responses have been documented in the HPI. ROS Other: All systems not noted in ROS Statement are negative. Constitutional: Denies: fever Eyes: Denies: eye pain ENT: Denies: ear pain Respiratory: Denies: cough Cardiovascular: Denies: chest pain Endocrine: Denies: fatigue Gastrointestinal: Denies: abdominal pain Genitourinary: Denies: dysuria Musculoskeletal: Reports: as per HPI Skin: Denies: rash Neurological: Denies: weakness Past Medical History Past Medical History: COPD, Diabetes Mellitus, Eye Disorder, Hyperlipidemia, Osteoarthritis (OA) Additional Past Medical History / Comment(s): 03/27/15 Pt admitted to floor s/p total R knee arthroplasty. Other HX: no BP problems since wt loss, R eye glaucoma, NIDDM. Anemia since childhood, likely iron deficiency anemia History of Any Multi-Drug Resistant Organisms: None Reported Past Surgical History: Appendectomy, Bariatric Surgery, Hysterectomy, Joint Replacement, Orthopedic Surgery Additional Past Surgical History / Comment(s): 03/27/15 Total R knee arthroplasty. Other SX HX: lap band, surgery for plyoric stenosis, varicose veins both legs, arthrscopy left knee, plastic surgery on scalp, rt shoulder arthroscopy, tlk Past Anesthesia/Blood Transfusion Reactions: No Reported Reaction Additional Past Anesthesia/Blood Transfusion Reaction / Comment(s): Pt has never received blood. Past Psychological History: No Psychological Hx Reported Past Alcohol Use History: None Reported Past Drug Use History: None Reported - Past Family History Brother(s) Family Medical History: Cancer Mother Family Medical History: CVA/TIA Additional Family Medical History / Comment(s): Mother of a CVA at age 70 yrs. Father Family Medical History: Unable to Obtain Additional Family Medical History / Comment(s): Father in a plane crash when pt was 10 yrs old. General Exam Limitations: no limitations General appearance: alert Head exam: Present: normocephalic Eye exam: Present: normal appearance Neck exam: Present: normal inspection Respiratory exam: Present: normal lung sounds bilaterally Cardiovascular Exam: Present: regular rate, normal rhythm Expanded Peripheral pulses: 2+: Dorsalis Pedis (R), Dorsalis Pedis (L) GI/Abdominal exam: Present: soft. Absent: tenderness Extremities exam: Present: other (Distally the extremity is neurovascular intact. Normal color. Good pulse.). Absent: full ROM (Range of motion right hip limited secondary to pain) Back exam: Present: tenderness (Right sciatic region) Neurological exam: Present: alert, other (Good sensation and strength of the feet. Assessment at the hip is limited to pain.). Absent: motor sensory deficit Psychiatric exam: Present: normal affect, normal mood Skin exam: Present: normal color Course Vital Signs 02/10/22 13:32 Temperature 98.1 F Pulse Rate 77 Respiratory 16 Rate Blood Pressure 145/79 O2 Sat by Pulse 98 Oximetry Medical Decision Making - Medical Decision Making Patient reevaluated and feeling much better. Patient updated on results and need for follow-up. - Radiology Data Radiology results: image reviewed (Some degenerative changes. No acute fracture or acute process.) Disposition Clinical Impression: Sciatica Disposition: HOME SELF-CARE Condition: Stable Instructions (If sedation given, give patient instructions): Sciatica (ED) Additional Instructions: Please do follow-up with your primary care physician in the next couple days for recheck. Prescription sent to pharmacy. Return for weakness, loss of control of bowel or bladder, worsening or changing symptoms or other concerns. Prescriptions: predniSONE [Deltasone] 20 mg PO BID #10 tab Cyclobenzaprine [Flexeril] 10 mg PO TID PRN #12 tablet PRN Reason: Pain Is patient prescribed a controlled substance at d/c from ED?: No Referrals: Clarissa Purcell DO [Primary Care Provider] - 1-2 days Time of Disposition: 14:00
[2022-02-10 13:33] VITALS: TEMP 98.1
[2022-02-10] MEDS ORDERED: ACET/COD 300 MG/30 MG STARTER PACK 6 TAB BTL PO STA (13:58)
--- NOTE | 2022-02-10 13:58 | XR ---
EXAMINATION TYPE: XR sacrum coccyx DATE OF EXAM: 02/10/2022 COMPARISON: None HISTORY: Pain TECHNIQUE: Three-view sacrum and coccyx FINDINGS: Sacroiliac joint degenerative changes are noted bilaterally. No acute sacral or coccygeal f ractures are evident. IMPRESSION: 1. Sacroiliac joint generative changes. 2. No acute osseous abnormality.
--- NOTE | 2022-02-10 13:59 | XR ---
EXAMINATION TYPE: XR Hip RT and AP Pelvis DATE OF EXAM: 02/10/2022 COMPARISON: None HISTORY: Pain TECHNIQUE: Two-view right hip supplemented with AP pelvis FINDINGS: Femoral heads articulate with the acetabulum. Minimal diffuse joint space narrowing may be present. Sacroiliac joints have mild degenerative changes. Symphysis pubis is unremarkable. Normal kaiden wel gas is present No acute fracture or dislocation of the right hip is evident. Crosstable lateral view is somewhat ribeiro ited. IMPRESSION: 1. No acute osseous abnormality right hip. Some mild osteoarthritic degenerative changes may be pres ent.
[2022-02-10 15:43] VITALS: BP 141/72; PULSE 81; RESP 15
== END 2022-02-10 15:00 | disposition home or self-care (01) ==
LOC: EC 12:56 → SUPCPDRO 12:56 → EC 15:00
DX: M54.31 Sciatica, right side (principal); J44.9 Chronic obstructive pulmonary disease, unspecified; E11.9 Type 2 diabetes mellitus without complications; E78.5 Hyperlipidemia, unspecified; M19.90 Unspecified osteoarthritis, unspecified site; Z79.899 Other long term (current) drug therapy
CPT/HCPCS: 72220; 73502; 99283; 96375 ×2; J1170; J1885; 96374

== ENCOUNTER 2023-02-17 13:05 | Emergency (ER) | payer MEDICARE ==
[2023-02-17] MEDS ORDERED: MORPHINE SULFATE 2 MG/ML SYRINGE IVP STA (13:41)
[2023-02-17] MEDS ORDERED: ONDANSETRON 4 MG/2 ML VIAL IVP STA (13:41)
[2023-02-17] MEDS ORDERED: KETOROLAC 15 MG/ML 1 ML VIAL IVP STA (13:41)
[2023-02-17] MEDS ORDERED: SODIUM CHLORIDE 0.9% 1,000 ML IV STA (13:41)
--- NOTE | 2023-02-17 14:07 | ED ---
Back Pain HPI - General Chief Complaint: Urogenital Stated Complaint: uti Time Seen by Provider: 02/17/23 13:34 Source: patient, RN notes reviewed Mode of arrival: ambulatory Limitations: no limitations - History of Present Illness Initial Comments: This is a 72-year-old female who presents to the emergency department for right flank pain and right lower quadrant pain. States that the symptoms started about 5 days ago. She saw her primary care provider 3 days ago, and had a urinalysis. States that there was blood in her urine and she was started on ciprofloxacin. Her urine was sent for culture, however she has not received these results yet. However, symptoms have started to get worse and she now has associated nausea and vomiting. States that her PCP instructed her to come to the emergency department for evaluation of a possible kidney stone. Denies any history of kidney stones in the past. MD Complaint: back pain - Related Data Home Medications Medication Instructions Recorded Confirmed Atorvastatin [Lipitor] 40 mg PO HS 03/23/15 05/05/17 Vit C/E/Zn/Coppr/Lutein/Zeaxan 1 cap PO HS 03/23/15 05/05/17 [Preservision Areds 2 Softgel] metFORMIN HCL [Glucophage] 500 mg PO DAILY 03/23/15 05/05/17 Latanoprost Ophth [Xalatan 0.005%] 1 drops RIGHT EYE HS 04/28/17 05/05/17 Previous Rx's Medication Instructions Recorded Aspirin 325 mg PO BID #60 tab 05/06/17 Docusate [Colace] 100 mg PO DAILY #30 capsule 05/06/17 Ferrous Sulfate [Iron (65 MG 325 mg PO BID #60 tab 05/06/17 Elemental)] HYDROcodone/APAP 7.5-325MG [[place] 1 - 2 each PO Q6HR PRN #60 tab 05/06/17 7.5] Cyclobenzaprine [Flexeril] 10 mg PO TID PRN #12 tablet 02/10/22 predniSONE [Deltasone] 20 mg PO BID #10 tab 02/10/22 HYDROcodone/APAP 5-325MG [Sun[place] 1 tab PO Q6HR PRN 3 Days #12 tab 02/17/23 5-325] Ketorolac [Toradol] 10 mg PO Q6HR PRN #15 tab 02/17/23 Ondansetron Odt [Zofran Odt] 4 mg PO Q8HR PRN #20 tab 02/17/23 Allergies Allergy/AdvReac Type Severity Reaction Status Date / Time No Known Allergies Allergy Verified 02/17/23 13:20 Review of Systems ROS Statement: Those systems with pertinent positive or pertinent negative responses have been documented in the HPI. ROS Other: All systems not noted in ROS Statement are negative. Past Medical History Past Medical History: COPD, Diabetes Mellitus, Eye Disorder, Hyperlipidemia, Osteoarthritis (OA) Additional Past Medical History / Comment(s): 03/27/15 Pt admitted to floor s/p total R knee arthroplasty. Other HX: no BP problems since wt loss, R eye glaucoma, NIDDM. Anemia since childhood, likely iron deficiency anemia History of Any Multi-Drug Resistant Organisms: None Reported Past Surgical History: Appendectomy, Bariatric Surgery, Hysterectomy, Joint Re placement, Orthopedic Surgery Additional Past Surgical History / Comment(s): 03/27/15 Total R knee arthroplasty. Other SX HX: lap band, surgery for plyoric stenosis, varicose veins both legs, arthrscopy left knee, plastic surgery on scalp, rt shoulder arthroscopy, tlk Past Anesthesia/Blood Transfusion Reactions: No Reported Reaction Additional Past Anesthesia/Blood Transfusion Reaction / Comment(s): Pt has never received blood. Past Psychological History: No Psychological Hx Reported Smoking Status: Never smoker Past Alcohol Use History: None Reported Past Drug Use History: None Reported - Past Family History Brother(s) Family Medical History: Cancer Mother Family Medical History: CVA/TIA Additional Family Medical History / Comment(s): Mother of a CVA at age 70 yrs. Father Family Medical History: Unable to Obtain Additional Family Medical History / Comment(s): Father in a plane crash when pt was 10 yrs old. General Exam Limitations: no limitations General appearance: alert, in distress Head exam: Present: atraumatic, normocephalic, normal inspection Respiratory exam: Present: normal lung sounds bilaterally. Absent: respiratory distress, wheezes, rales, rhonchi, stridor Cardiovascular Exam: Present: regular rate, normal rhythm, normal heart sounds. Absent: systolic murmur, diastolic murmur, rubs, gallop, clicks GI/Abdominal exam: Present: soft, normal bowel sounds. Absent: distended, tenderness, guarding, rebound, rigid Back exam: Present: CVA tenderness (R). Absent: CVA tenderness (L) Neurological exam: Present: alert, oriented X3, CN II-XII intact Psychiatric exam: Present: normal affect, normal mood Skin exam: Present: warm, dry, intact, normal color. Absent: rash Course Vital Signs 02/17/23 02/17/23 02/17/23 13:15 14:23 15:07 Temperature 97.6 F 98.1 F Pulse Rate 65 67 65 Respiratory 17 18 18 Rate Blood Pressure 151/72 157/80 146/94 O2 Sat by Pulse 96 98 96 Oximetry Medical Decision Making - Medical Decision Making This is a 72-year-old female who presents to the emergency department for right flank pain. Was pt. sent in by a medical professional or institution? @ -Her PCP Did you speak to anyone other than the patient for history? @ -No Did you review nursing and triage notes? @ -Yes, and I agree, it is accurate with regards to the patient's symptoms. Were old charts reviewed? @ -No Differential Diagnosis? @ -Differential Flank Pain: UTI, pyelonephritis, kidney stone, musculoskeletal, pancreatitis, cholecystitis, this is not meant to be an all-inclusive list. EKG interpreted by me (3pts min.)? @ -Not obtained X-rays interpreted by me (1pt min.)? @ -Not obtained CT interpreted by me (1pt min.)? @ -Computed tomography scan of the abdomen and pelvis obtained. My interpretation identifies a right ureteral calculus. U/S interpreted by me (1pt. min.)? @ -Not obtained What testing was considered but not performed? (CT, X-rays, U/S, labs)? Why? @ -None What meds were considered but not given? Why? @ -None Did you discuss the management of the patient with other professionals? @ -Yes, Dr. Garza, urology, who advised that because the urine does not appear significantly infected at this time, and because the patient's symptoms improved and she has remained hemodynamically stable, she does not need to be admitted and can follow up in the office. Did you reconcile home meds? @ -No Was smoking cessation discussed for >3mins.? @ -No Was critical care preformed (if so, how long)? @ -No Were there social determinants of health that impacted care today? How? (Homelessness, low income, unemployed, alcoholism, drug addiction, transportation, low edu. Level, literacy, decrease access to med. care, prison, rehab)? @ -No Was there de-escalation of care discussed even if they declined? (Discuss DNR or withdrawal of care, Hospice)? @ -No What co-morbidities impacted this encounter? (DM, HTN, Smoking, COPD, CAD, Cancer, CVA, Hep., AIDS, mental health diagnosis, sleep apnea, morbid obesity)? @ -DM Was patient admitted / discharged? @ -Discharged. Lab work obtained revealing leukocytosis and no other actionable findings. Urinalysis reveals a small amount of blood and occasional bacteria. Urine sent for culture. There is no elevation in white blood cells and there was a fair amount of contamination present as well. Computed tomography scan of the abdomen and pelvis obtained revealing a 5 mm obstructing calculus in the distal right ureter with mild hydronephrosis. Given that the patient is on Cipro for possible UTI in association with obstructing calculus, case was discussed with Dr. Garza, urology. He advised that because the urine does not appear overtly infected at this time, and given that the patient is hemodynamically stable with significant improvement in symptoms, she can be discharged home with follow-up in the office. Patient discharged home with a urine strainer and given prescriptions for Toradol, Sunbury, and Zofran with dosing instructions reviewed. Information for urology follow-up provided and she is instructed to contact them in the morning for a follow-up appointment. Undiagnosed new problem with uncertain prognosis? @ -None Drug Therapy requiring intensive monitoring for toxicity (Heparin, Nitro, Insulin, Cardizem)? @ -None Were any procedures done? @ -None Diagnosis/symptom? @ -Right ureteral calculus Acute, or Chronic, or Acute on Chronic? @ -Acute Uncomplicated (without systemic symptoms) or Complicated (systemic symptoms)? @ -Uncomplicated Side effects of treatment? @ -None Exacerbation, Progression, or Severe Exacerbation] @ -Not applicable Poses a threat to life or bodily function? @ -No Return precautions reviewed in depth, the patient is instructed to return to the emergency department with any new, worsening, or concerning symptoms. Patient verbalized understanding. This case was discussed in detail with the attending ED physician, Dr. Maryanne álvarez. Presentation, findings, and treatment plan discussed in detail as well. - Lab Data Result diagrams: 02/17/23 13:45 02/17/23 13:45 Lab Results 02/17/23 02/17/23 02/17/23 Range/Units 13:45 13:45 13:45 WBC 11.0 H (3.8-10.6) k/uL RBC 5.12 (3.80-5.40) m/uL Hgb 15.6 (11.4-16.0) gm/dL Hct 47.1 H (34.0-46.0) % MCV 92.1 (80.0-100.0) fL MCH 30.5 (25.0-35.0) pg MCHC 33.2 (31.0-37.0) g/dL RDW 12.9 (11.5-15.5) % Plt Count 266 (150-450) k/uL MPV 7.8 Neutrophils % 79 % Lymphocytes % 12 % Monocytes % 6 % Eosinophils % 1 % Basophils % 1 % Neutrophils # 8.7 H (1.3-7.7) k/uL Lymphocytes # 1.3 (1.0-4.8) k/uL Monocytes # 0.6 (0-1.0) k/uL Eosinophils # 0.1 (0-0.7) k/uL Basophils # 0.1 (0-0.2) k/uL Sodium 142 (137-145) mmol/L Potassium 4.4 (3.5-5.1) mmol/L Chloride 107 (98-107) mmol/L Carbon Dioxide 21 L (22-30) mmol/L Anion Gap 14 mmol/L BUN 19 H (7-17) mg/dL Creatinine 1.03 (0.52-1.04) mg/dL Est GFR (CKD-EPI)AfAm 62 (>60 ml/min/1.73 sqM) Est GFR (CKD-EPI)NonAf 54 (>60 ml/min/1.73 sqM) Glucose 123 H (74-99) mg/dL Plasma Lactic Acid Jonathan (0.7-2.0) mmol/L Calcium 9.4 (8.4-10.2) mg/dL Total Bilirubin 0.7 (0.2-1.3) mg/dL AST 36 (14-36) U/L ALT 24 (4-34) U/L Alkaline Phosphatase 97 (38-126) U/L Total Protein 8.0 (6.3-8.2) g/dL Albumin 4.5 (3.5-5.0) g/dL Urine Color Yellow Urine Appearance Cloudy H (Clear) Urine pH 5.0 (5.0-8.0) Ur Specific Fulton 1.026 (1.001-1.035) Urine Protein Trace H (Negative) Urine Glucose (UA) Negative (Negative) Urine Ketones Negative (Negative) Urine Blood Small H (Negative) Urine Nitrite Negative (Negative) Urine Bilirubin Negative (Negative) Urine Urobilinogen <2.0 (<2.0) mg/dL Ur Leukocyte Esterase Negative (Negative) Urine RBC 8 H (0-5) /hpf Urine WBC 1 (0-5) /hpf Ur Squamous Epith Cells 6 H (0-4) /hpf Amorphous Sediment Rare H (None) /hpf Urine Bacteria Occasional H (None) /hpf Urine Mucus Rare H (None) /hpf 02/17/23 Range/Units 13:45 WBC (3.8-10.6) k/uL RBC (3.80-5.40) m/uL Hgb (11.4-16.0) gm/dL Hct (34.0-46.0) % MCV (80.0-100.0) fL MCH (25.0-35.0) pg MCHC (31.0-37.0) g/dL RDW (11.5-15.5) % Plt Count (150-450) k/uL MPV Neutrophils % % Lymphocytes % % Monocytes % % Eosinophils % % Basophils % % Neutrophils # (1.3-7.7) k/uL Lymphocytes # (1.0-4.8) k/uL Monocytes # (0-1.0) k/uL Eosinophils # (0-0.7) k/uL Basophils # (0-0.2) k/uL Sodium (137-145) mmol/L Potassium (3.5-5.1) mmol/L Chloride (98-107) mmol/L Carbon Dioxide (22-30) mmol/L Anion Gap mmol/L BUN (7-17) mg/dL Creatinine (0.52-1.04) mg/dL Est GFR (CKD-EPI)AfAm (>60 ml/min/1.73 sqM) Est GFR (CKD-EPI)NonAf (>60 ml/min/1.73 sqM) Glucose (74-99) mg/dL Plasma Lactic Acid Jonathan 1.8 (0.7-2.0) mmol/L Calcium (8.4-10.2) mg/dL Total Bilirubin (0.2-1.3) mg/dL AST (14-36) U/L ALT (4-34) U/L Alkaline Phosphatase (38-126) U/L Total Protein (6.3-8.2) g/dL Albumin (3.5-5.0) g/dL Urine Color Urine Appearance (Clear) Urine pH (5.0-8.0) Ur Specific F[place] (1.001-1.035) Urine Protein (Negative) Urine Glucose (UA) (Negative) Urine Ketones (Negative) Urine Blood (Negative) Urine Nitrite (Negative) Urine Bilirubin (Negative) Urine Urobilinogen (<2.0) mg/dL Ur Leukocyte Esterase (Negative) Urine RBC (0-5) /hpf Urine WBC (0-5) /hpf Ur Squamous Epith Cells (0-4) /hpf Amorphous Sediment (None) /hpf Urine Bacteria (None) /hpf Urine Mucus (None) /hpf - Radiology Data Radiology results: report reviewed, image reviewed Disposition Clinical Impression: Right ureteral stone Disposition: HOME SELF-CARE Instructions (If sedation given, give patient instructions): Ureteral Stones (ED) Additional Instructions: Return to the emergency department with any new, worsening, or concerning symptoms. Take the Toradol with Tylenol as needed for pain relief. If you take the Toradol, do not take any other anti-inflammatories such as ibuprofen, take one or the other. Take the Sunbury sparingly when your pain is the most severe and be aware that it may make you drowsy. Use the urine strainer to try and collect the kidney stone. If you are able to collect it, try to save it and bring it to your primary care provider's office or the urology office for eval uation. Contact urology as listed below for a follow-up appointment. Let them know that you were seen in the emergency department and diagnosed with a stone in your right ureter. Follow up with your primary care provider in 1-2 days. Prescriptions: HYDROcodone/APAP 5-325MG [Sun[place] 5-325] 1 tab PO Q6HR PRN 3 Days #12 tab PRN Reason: Pain Ketorolac [Toradol] 10 mg PO Q6HR PRN #15 tab PRN Reason: Pain Ondansetron Odt [Zofran Odt] 4 mg PO Q8HR PRN #20 tab PRN Reason: Nausea And Vomiting Is patient prescribed a controlled substance at d/c from ED?: Yes When asked, does pt state using other controlled substances?: No If prescribed controlled substance>3 days was MAPS reviewed?: Prescribed <3 Days Referrals: Clarissa Purcell DO [Primary Care Provider] - 1-2 days Kendall Garza MD [STAFF PHYSICIAN] - 1-2 days
[2023-02-17 14:27] LABS: Basophils % (A) 1 %; Eosinophils # (A) 0.1 k/uL (0-0.7); Eosinophils % (A) 1 %; HCT 47.1 % (34.0-46.0); HGB 15.6 gm/dL (11.4-16.0); Lymphocytes # (A) 1.3 k/uL (1.0-4.8); Lymphocytes % (A) 12 %; MCH 30.5 pg (25.0-35.0); MCHC 33.2 g/dL (31.0-37.0); MCV 92.1 fL (80.0-100.0); Mean Platelet Volume 7.8; Monocytes # (A) 0.6 k/uL (0-1.0); Monocytes % (A) 6 %; Neutrophils # (A) 8.7 k/uL (1.3-7.7); Neutrophils % (A) 79 %; Platelet Count 266 k/uL (150-450); RBC 5.12 m/uL (3.80-5.40); RDW 12.9 % (11.5-15.5)
[2023-02-17 14:28] LABS: Basophils # (A) 0.1 k/uL (0-0.2)
[2023-02-17 14:29] LABS: Amorphous Sediment,Urine Rare /hpf; Appearance,Urine Cloudy (Clear); Bacteria,Urine Occasional /hpf; Bilirubin,Urine Negative (Negative); Blood,Urine Small (Negative); Color,Urine Yellow; Glucose,Urine (UA) Negative (Negative); Ketones,Urine Negative (Negative); Leukocyte Esterase,Urine Negative (Negative); Mucus,Urine Rare /hpf; Nitrite,Urine Negative (Negative); Protein,Urine Trace (Negative); RBC,Urine 8 /hpf (0-5); Specific Gravity,Urine 1.026 (1.001-1.035); Squamous Epithelial Cell,Urine 6 /hpf (0-4); Urobilinogen,Urine <2.0 mg/dL (<2.0); WBC,Urine 1 /hpf (0-5)
[2023-02-17 14:30] VITALS: RESP 18
--- NOTE | 2023-02-17 14:36 | CT ---
EXAMINATION TYPE: CT abdomen pelvis wo con CT DLP: 1045 mGycm, Automated exposure control for dose reduction was used. DATE OF EXAM: 02/17/2023 2:19 PM COMPARISON: None CLINICAL INDICATION:Female, 72 years old with history of Right flank pain; TECHNIQUE: Axial CT of the ;CT abdomen pelvis wo con;Sagittal and coronal reformats were created on a separate workstation. Contrast used: mL of , (none if empty) Oral contrast used: (none if empty) FINDINGS: LOWER CHEST: Unremarkable ABDOMEN LIVER: Simple appearing cyst. GALLBLADDER AND BILE DUCTS: Unremarkable. PANCREAS: Unremarkable. SPLEEN: Unremarkable. ADRENAL GLANDS: Unremarkable. KIDNEYS AND URETERS: Mild right hydronephrosis secondary obstructing 5 mm calculus at the distal righ t ureter. No additional calculi visualized bilaterally. No left obstructive uropathy. Left renal min pherally calcified lesion is indeterminate measuring up to 15 mm.. PELVIS BLADDER: Unremarkable REPRODUCTIVE: Unremarkable. ABDOMEN & PELVIS STOMACH AND BOWEL: No evidence of bowel obstruction. Scattered colonic diverticula. Gastric lap band present with flattened angle at nearly 90 degrees. PERITONEUM/RETROPERITONEUM: No evidence of pneumoperitoneum or free fluid. VASCULATURE: No evidence of aortic aneurysm. MUSCULOSKELETAL: No acute osseous abnormalities, degeneration changes worse at L3-L4. LYMPH NODES: No gross evidence for lymphadenopathy. SOFT TISSUE/ABDOMINAL WALL: Unremarkable IMPRESSION: 1. Mild right hydronephrosis secondary obstructing 5 mm calculus at the distal right ureter. 2. Gastric lap band with flattening of the angle suggesting migration. 3. Indeterminate renal lesion with peripheral calcifications. Further evaluation with CT/MRI renal m ass protocol is recommended.
[2023-02-17 14:38] LABS: ALT 24 U/L (4-34); African American GFR (CKD) 62 (>60 ml/min/1.73 sqM); Anion Gap 14 mmol/L; Blood Urea Nitrogen 19 mg/dL (7-17); Calcium 9.4 mg/dL (8.4-10.2); Carbon Dioxide 21 mmol/L (22-30); Chloride 107 mmol/L (98-107); Glucose 123 mg/dL (74-99); Non-African American GFR(CKD) 54 (>60 ml/min/1.73 sqM); Sodium 142 mmol/L (137-145)
[2023-02-17 14:41] LABS: Potassium 4.4 mmol/L (3.5-5.1); Total Bilirubin 0.7 mg/dL (0.2-1.3)
[2023-02-17 14:42] LABS: AST 36 U/L (14-36); Albumin 4.5 g/dL (3.5-5.0)
[2023-02-17 14:43] LABS: Alkaline Phosphatase 97 U/L (38-126)
[2023-02-17 15:40] VITALS: BP 146/94; PULSE 65; TEMP 98.1
== END 2023-02-17 15:25 | disposition home or self-care (01) ==
LOC: EC 13:05
DX: N13.2 Hydronephrosis with renal and ureteral calculous obstruction (principal); J44.9 Chronic obstructive pulmonary disease, unspecified; E11.9 Type 2 diabetes mellitus without complications; E78.5 Hyperlipidemia, unspecified; M19.90 Unspecified osteoarthritis, unspecified site; Z79.899 Other long term (current) drug therapy
CPT/HCPCS: 36415; 80053; 83605; 85025; 81001; 74176; 99283; 96374; 96375 ×2; 96361; J2405; J2270; J1885

== ENCOUNTER → 2023-08-26 | Outpatient (CLI) | payer MEDICARE ==
--- NOTE | 2023-08-27 19:05 | MM ---
Reason for Exam: Screening (asymptomatic). Last mammogram was performed 1 year(s) and 11 month(s) ago. Patient History: Menarche at age 12. First Full-Term at age 24. Left ovary removed at age 45. Right ovary removed at age 45. Hysterectomy at age 45. Postmenopausal. Patient used Hormonal Contraceptives for 20 years. Risk Values: Marcelle 5 year model risk: 2.0%. NCI Lifetime model risk: 4.8%. Prior Study Comparison: 02/26/2019 Bilateral Screening Mammogram, [facility]. 05/15/2020 Bilateral Screening Mammogram, [facility]. 09/27/2021 Bilateral MG 3D screening mammo w/cad, [facility]. Tissue Density: There are scattered areas of fibroglandular density. Findings: Analyzed By CAD. Focal asymmetry upper outer quadrant left breast anterior to middle depth is unchanged. There is no suspicious group of microcalcifications or new suspicious mass in either breast. Overall Assessment: Benign, BI-RAD 2 Management: Screening Mammogram of both breasts in 1 year. Patient should continue monthly self-breast exams. A clinical breast exam by your physician is recommended on an annual basis. This exam should not preclude additional follow-up of suspicious palpable abnormalities. Note on Marcelle scores and lifetime risk: 1. A Marcelle score greater than 3% is considered moderate risk. If this is the case, consider specialist referral to assess eligibility for a risk reducing agent. 2. If overall lifetime risk for the development of breast cancer is 20% or higher, the patient may qualify for future screening with alternating mammogram and breast MRI. Electronically signed and approved by: Liseth Ivory M.D. Radiologist
== END | disposition home or self-care (01) ==
LOC: RADMAMWWP 12:38
PROVIDERS: ATTEND Family Medicine
DX: Z12.31 Encounter for screening mammogram for malignant neoplasm of breast (principal); Z78.0 Asymptomatic menopausal state
CPT/HCPCS: 77063; 77067

== ENCOUNTER → 2024-10-13 | Outpatient (CLI) | payer MEDICARE ==
--- NOTE | 2024-10-13 15:43 | MM ---
Reason for Exam: Screening (asymptomatic). Last mammogram was performed 1 year(s) and 2 month(s) ago. Patient History: Menarche at age 12. First Full-Term at age 24. Left ovary removed at age 45. Right ovary removed at age 45. Hysterectomy at age 45. Postmenopausal. Patient used Hormonal Contraceptives for 20 years. Risk Values: Marcelle 5 year model risk: 2.0%. NCI Lifetime model risk: 4.5%. Prior Study Comparison: 05/15/2020 Bilateral Screening Mammogram, [facility]. 09/27/2021 Bilateral MG 3D screening mammo w/cad, [facility]. 08/26/2023 Bilateral MG 3D screening mammo w/cad, [facility]. Tissue Density: There are scattered areas of fibroglandular density. Findings: Analyzed By CAD. There is no suspicious group of microcalcifications or new suspicious mass in either breast. Overall Assessment: Negative, BI-RAD 1 Management: Screening Mammogram of both breasts in 1 year. Patient should continue monthly self-breast exams. A clinical breast exam by your physician is recommended on an annual basis. This exam should not preclude additional follow-up of suspicious palpable abnormalities. Note on Marcelle scores and lifetime risk: 1. A Marcelle score greater than 3% is considered moderate risk. If this is the case, consider specialist referral to assess eligibility for a risk reducing agent. 2. If overall lifetime risk for the development of breast cancer is 20% or higher, the patient may qualify for future screening with alternating mammogram and breast MRI. [facility], , 10/13/2024 3:40 PM. Electronically signed and approved by: Liseth Ivory M.D. Radiologist
== END | disposition home or self-care (01) ==
LOC: RADMAMWWP 13:43
PROVIDERS: ATTEND Family Medicine
DX: Z12.31 Encounter for screening mammogram for malignant neoplasm of breast (principal); R92.323 Mammographic fibroglandular density, bilateral breasts; Z78.0 Asymptomatic menopausal state; Z92.0 Personal history of contraception
CPT/HCPCS: 77063; 77067